=== PATIENT | male | born 1935 | race Caucasian/White ===

== ENCOUNTER 2021-06-03 07:21 | Emergency (ER) | payer OTHER ==
[~2021-06-03] VITALS: Ht 170.2 cm; Wt 52.2 kg
[2021-06-03] MEDS ORDERED: ZESTRIL20 MG (07:48)
[2021-06-03] MEDS ORDERED: GLIMEPIRIDE2 MG PO (07:49)
[2021-06-03] MEDS ORDERED: CILOSTAZOL50 MG (07:50)
[2021-06-03] MEDS ORDERED: LIPITOR40 M1 (07:50)
[2021-06-03] MEDS ORDERED: PHENYTOIN SODI200 MG (07:50)
[2021-06-03] MEDS ORDERED: MILLIPRED5 MG (07:51)
[2021-06-03] MEDS ORDERED: ZYTIGA250 MG (07:51)
== END 2021-06-03 14:41 | disposition home or self-care (01) ==
LOC: ER 07:21
DX: G25.2 Other specified forms of tremor (principal); I10 Essential (primary) hypertension

== ENCOUNTER 2021-08-12 18:01 | Inpatient (IN) | payer OTHER ==
[~2021-08-12] VITALS: Ht 170.2 cm; Wt 50.8 kg
[~2021-08-12 18:01] MED LIST: CILOSTAZOL50 MG; GLIMEPIRIDE2 MG PO; LIPITOR40 M1; MILLIPRED5 MG; PHENYTOIN SODI200 MG; ZESTRIL20 MG; ZYTIGA250 MG
[2021-08-13] MEDS ORDERED: CHLORDIAZEPOXID25 MG (08:59)
[2021-08-13] MEDS ORDERED: FOLIC ACID1 MG (08:59)
[2021-08-13] MEDS ORDERED: METFORMIN HCL500 M4 (08:59)
[2021-08-13] MEDS ORDERED: RAYOS5 MG (08:59)
[2021-08-13] MEDS ORDERED: PRIMIDONE50 MG (08:59)
[2021-08-13] MEDS ORDERED: B-121000 MC1 (08:59)
[2021-08-13] MEDS ORDERED: VITAMIN B-1100 M1 (09:00)
== END 2021-08-21 18:00 | disposition expired | DRG 722 ==
LOC: MEDJ 18:01
PROVIDERS: ADMIT Specialist; ATTEND Specialist
PROC: B24BZZZ Ultrasonography of Heart with Aorta (ICD-10-PCS; 2021-08-12)
PROC: 4A12X4Z Monitoring of Cardiac Electrical Activity, External Approach (ICD-10-PCS; 2021-08-12)
PROC: 8E0ZXY6 Isolation (ICD-10-PCS; 2021-08-12)
PROC: 02HV33Z Insertion of Infusion Device into Superior Vena Cava, Percutaneous Approach (ICD-10-PCS; 2021-08-13)
PROC: 30243N1 Transfusion of Nonautologous Red Blood Cells into Central Vein, Percutaneous Approach (ICD-10-PCS; 2021-08-13)
PROC: BW21Y0Z Computerized Tomography (CT Scan) of Abdomen and Pelvis using Other Contrast, Unenhanced and Enhanced (ICD-10-PCS; 2021-08-14)
PROC: 3E0F7SF Introduction of Other Gas into Respiratory Tract, Via Natural or Artificial Opening (ICD-10-PCS; 2021-08-15)
PROC: BW24ZZZ Computerized Tomography (CT Scan) of Chest and Abdomen (ICD-10-PCS; principal; 2021-08-18)
PROC: 5A09457 Assistance with Respiratory Ventilation, 24-96 Consecutive Hours, Continuous Positive Airway Pressure (ICD-10-PCS; 2021-08-20)
DX: C61 Malignant neoplasm of prostate (principal); J81.0 Acute pulmonary edema; C79.51 Secondary malignant neoplasm of bone; J90 Pleural effusion, not elsewhere classified; E44.0 Moderate protein-calorie malnutrition; D63.0 Anemia in neoplastic disease; I48.0 Paroxysmal atrial fibrillation; I10 Essential (primary) hypertension; R09.02 Hypoxemia; E86.0 Dehydration; E11.9 Type 2 diabetes mellitus without complications; Z79.84 Long term (current) use of oral hypoglycemic drugs; Z66 Do not resuscitate; F10.21 Alcohol dependence, in remission
CPT/HCPCS: 240